=== PATIENT | female | born 1955 | race Caucasian/White ===

== ENCOUNTER → 2018-02-16 12:45 | Outpatient (CLI) | payer BC, SELFPAY ==
[2018-02-16 13:13] LABS: Add Manual Diff / Slide Review NO; Basophils Percent Auto 0.4 % (0-2); Eosinophils Percent Auto 0.5 % (2-4); Hematocrit 39.5 % (36-46); Hemoglobin 12.9 g/dL (12.0-16.0); Lymphocytes Percent Auto 23.5 % (25-40); Mean Corpuscular HGB Conc 32.8 % (30-36); Mean Corpuscular Hemoglobin 30.8 PG (26-34); Monocytes Percent Auto 7.7 % (3-14); Neutrophils Absolute Auto 6100 /uL (3000-5900); Neutrophils Percent Auto 67.9 % (50-75); Platelet Count 295 X10^3/uL (150-400)
[2018-02-16 13:34] LABS: Alanine Aminotransferase 36 IU/L (9-52); Albumin 4.2 g/dL (3.5-5.0); Albumin Globulin Ratio 1.5 (1.0-2.8); Alkaline Phosphatase 92 U/L (38-126); Aspartate Aminotransferase 21 IU/L (14-36); BUN Creatinine Ratio 26.7 (6-22); Bilirubin Total 0.4 mg/dL (0.2-1.3); Blood Urea Nitrogen 16 mg/dL (7-17); Calcium 9.8 mg/dL (8.4-10.2); Carbon Dioxide 29 mmol/L (22-32); Chloride 104 mmol/L (98-107); Estimated Glomerular Filt Rate > 60.0 mL/min (>60); Globulin 2.8 g/dL (1.7-4.1); Glucose 86 mg/dL (80-110); HEMOLYSIS < 15 (0-50); Sodium 141 mmol/L (137-145); Uric Acid 3.1 mg/dL (2.5-6.2)
== END ==
PROVIDERS: PCP Internal Medicine; Visit Provider Physician Assistant
DX: M25.431 Effusion, right wrist (principal)
CPT/HCPCS: 36415; 80053; 84550; 85025

== ENCOUNTER 2018-11-13 14:51 | Emergency (ER) | payer BC, SELFPAY ==
[2018-11-13 15:06] VITALS: BP 131/76; PULSE 74; RESP 18; TEMP 36.4; O2SAT 100; BMI 27.9
[2018-11-13 15:36] LABS: Bacteria Urine Few (2-10); Culture Indicated Urine Specimen Cultured; RBC Urine 0-1/HPF (0-5/HPF); WBC Urine 1-5/HPF (0-5/HPF)
--- NOTE | 2018-11-13 16:28 | ED_ITS ---
HPI - Female Genitourinary <SHREYAS Haywood-BC - Last Filed: 11/13/18 16:35> General Chief complaint: Urogenital-Female Stated complaint: Thinks bladder infection Time Seen by Provider: 11/13/18 16:09 Source: patient Mode of arrival: ambulatory Limitations: no limitations History of Present Illness HPI Narrative: The patient is a 63-year-old female former smoker who presents with a chief complaint of UTI symptoms. She states she woke this morning dysuria urgency or frequency. She denies any fevers vomiting diarrhea or flank pain. She has a history of urinary tract infections and states that this feels normal. She denies any abdominal pain other than bladder pressure. She denies any vaginal discharge. She has not had a UTI for over a year. Related Data Home Medications Medication Instructions Recorded Confirmed calcium acetate PO 02/16/18 02/16/18 omega-3 fatty acids-fish oil PO 02/16/18 02/16/18 Previous Rx's Medication Instructions Recorded ibuprofen 800 mg tablet 800 mg PO TID PRN #90 tab 02/16/18 sulfamethoxazole-trimethoprim 1 tab PO BID #14 tab 11/13/18 [Bactrim DS] Allergies Allergy/AdvReac Type Severity Reaction Status Date / Time From DIFLUCAN AdvReac Intermediate heart Uncoded 11/13/18 15:09 palpitations From CIPRO AdvReac Mild tendinititi Uncoded 11/13/18 15:09 s Review of Systems <SHREYAS Haywood-BC - Last Filed: 11/13/18 16:35> Review of Systems GENERAL: Denies chills, fatigue, malaise, fever, sweats. HEENT: Denies sinus pain, ear pain, sore throat, difficulty swallowing, dizziness. RESPIRATORY: Denies dyspnea, cough, wheezing, hemoptysis, sputum. CARDIOVASCULAR: Denies chest pain, palpitations, orthopnea, edema, GASTROINTESTINAL: Denies nausea, vomiting, abdominal pain, diarrhea, co nstipation, melena. : See HPI MUSCULOSKELETAL: denies weakness, joint pain, or bony pain SKIN: Denies rash, skin lesions, or other NEUROLOGIC: Denies weakness, headache, numbness, change in speech, confusion, seizures, incoordination. PSYCHIATRIC: No concerning psychosocial issues. 12 point review of systems is negative except for those stated above PFSH <NILES Haywood - Last Filed: 11/13/18 16:35> Medical History (Updated 11/13/18 @ 16:34 by NILES Haywood) History of recurrent UTIs (Acute) Social History Smoking Status: Former smoker Social History Smoking Status: Former smoker Exam <NILES Haywood - Last Filed: 11/13/18 16:35> Narrative Exam Narrative: GENERAL: This is a well-nourished, well-developed patient, no acute distress HEAD: Atraumatic. Normocephalic. No temporal or scalp tenderness. EYES: Pupils equal round and reactive. Extraocular motions intact. No scleral icterus. No injection or drainage. ENT: Nose without bleeding, purulent drainage or septal hematoma. Throat without erythema, tonsillar hypertrophy or exudate. Uvula midline. Airway patent. NECK: Trachea midline. No JVD or lymphadenopathy. Supple, nontender, no meningeal signs. CARDIOVASCULAR: Regular rate and rhythm without murmurs, gallops, or rubs. RESPIRATORY: Clear to auscultation. Breath sounds equal bilaterally. No wheezes, rales, or rhonchi. GASTROINTESTINAL: Abdomen soft, non-tender, nondistended. No hepato- splenomegaly, or palpable masses. No guarding. EXTREMITIES: No clubbing, cyanosis, or edema. No joint tenderness, effusion, or edema noted. BACK: Nontender without deformity or crepitance. No flank tenderness. NEURO: AOx3. SKIN: No rash or erythema. Initial Vital Signs Initial Vital Signs: Vital Signs Temperature 97.5 F L 11/13/18 15:06 Pulse Rate 74 11/13/18 15:06 Respiratory Rate 18 11/13/18 15:06 Blood Pressure 131/76 11/13/18 15:06 Pulse Oximetry 100 11/13/18 15:06 <Katrina Jennings DO - Last Filed: 11/14/18 07:38> Initial Vital Signs Initial Vital Signs: Vital Signs Temperature 97.5 F L 11/13/18 15:06 Pulse Rate 74 11/13/18 15:06 Respiratory Rate 18 11/13/18 15:06 Blood Pressure 131/76 11/13/18 15:06 Pulse Oximetry 100 11/13/18 15:06 Course <NILES Haywood - Last Filed: 11/13/18 16:35> Orders Ordered: ED Orders 11/13/18 15:05 Urine Culture Stat Urine Microscopic Stat Vital Signs - 8 hr 11/13/18 15:06 Temperature 97.5 F L Pulse Rate 74 Respiratory Rate 18 Blood Pressure 131/76 Pulse Oximetry 100 <Katrina Jennings DO - Last Filed: 11/14/18 07:38> Orders Ordered: ED Orders 11/13/18 15:05 Urine Culture Stat Urine Microscopic Stat Vital Signs - 8 hr 11/13/18 15:06 Temperature 97.5 F L Pulse Rate 74 Respiratory Rate 18 Blood Pressure 131/76 Pulse Oximetry 100 MDM - Female Genitourinary <NILES Haywood - Last Filed: 11/13/18 16:35> Lab Data Lab Results 11/13/18 Range/Units 15:05 Urine RBC 0-1/hpf (0-5/HPF) Urine WBC 1-5/hpf (0-5/HPF) Urine Bacteria Few (2-10) H (None) Ur Culture Indicated? Specimen cultured Urine Dip Bedside Urine Glucose Negative Bedside Urine Bilirubin - Negative Bedside Urine Ketone - Negative Urine Specific [place] 1.010 Bedside Urine Occult Blood ++ Bedside Urine pH 7.0 Bedside Urine Protein - Negative Bedside Urine Urobilinogen - Negative Bedside Urine Nitrite - Negative Bedside Urine Leukocytes + 70 Esterase MDM Narrative Medical decision making narrative: The patient is a 63-year-old female with hist ory of hypertension who presents with a chief complaint of urinary symptoms. Her urinalysis indicates a UTI. Thus I will initiate treatment for UTI with Bactrim. Her urine cultures pending at this point time. She has no systemic symptoms, no flank pain or fever, ruling out pyelonephritis. I discussed at length return precautions including fever, inability keep down fluids etc. Encouraged PCP follow-up. Patient will do that when she gets back to [place]. No questions or concerns upon discharge. <Katrian Jennings DO - Last Filed: 11/14/18 07:38> Lab Data Lab Results 11/13/18 Range/Units 15:05 Urine RBC 0-1/hpf (0-5/HPF) Urine WBC 1-5/hpf (0-5/HPF) Urine Bacteria Few (2-10) H (None) Ur Culture Indicated? Specimen cultured Urine Dip Bedside Urine Glucose Negative Bedside Urine Bilirubin - Negative Bedside Urine Ketone - Negative Urine Specific [place] 1.010 Bedside Urine Occult Blood ++ Bedside Urine pH 7.0 Bedside Urine Protein - Negative Bedside Urine Urobilinogen - Negative Bedside Urine Nitrite - Negative Bedside Urine Leukocytes + 70 Esterase Discharge Plan Departure Patient Disposition: Home Clinical Impression: Urinary tract infection Qualifiers: Urinary tract infection type: site unspecified Hematuria presence: with hematuria Qualified Code(s): N39.0 - Urinary tract infection, site not specified Discharge Date/Time: 11/13/18 16:36 Interventions: ED Discharge Assessment Last Done: 11/13/18 16:36 Instructions: DI for Urinary Tract Infection (UTI) Activity Restrictions/Additional Instructions: Your urine was concerning for infection. I have given her prescription for an antibiotic. Please follow up with primary care provider when you get home Please monitor for fever, flank pain inability keep down fluids or signs of worsening. Please be evaluated if any of these happen. A urine culture is pending at this point time. Results will be back in 48-72 hours. You will get a phone call if the antibiotic needs to be changed Prescriptions: New sulfamethoxazole-trimethoprim [Bactrim DS] 800-160 mg tablet 1 tab PO BID Qty: 14 RF: 0 No Action omega-3 fatty acids-fish oil PO RF: 0 calcium acetate PO RF: 0 ibuprofen 800 mg tablet 800 mg PO TID PRN (Reason: pain) Qty: 90 RF: 0 <Katrina Jennings DO - Last Filed: 11/14/18 07:38> Cosign ED Attending Cosadrianature Attestation: I was immediately available in the department for consultation. This documentation has been reviewed and I agree with assessment and plan. Supervised by Katrina Jennings DO
== END 2018-11-13 16:36 | disposition home or self-care (01) ==
PROVIDERS: Emergency Medicine; Emergency Provider Nurse Practitioner Family
DX: N39.0 Urinary tract infection, site not specified (principal)
CPT/HCPCS: 81003; 81015; 87077; 87086; 87186; 99282; 99283

== ENCOUNTER 2018-11-16 16:57 | Emergency (ER) | payer BC, SELFPAY ==
[2018-11-16 17:00] VITALS: BP 131/83; PULSE 74; RESP 20; TEMP 36.9; O2SAT 97; BMI 27.9
[2018-11-16 17:13] LABS: Bacteria Urine None Seen; RBC Urine None Seen (0-5/HPF)
[2018-11-16 17:18] LABS: Appearance Urine UA CLEAR; Bilirubin Urine UA NEGATIVE (NEGATIVE); Color Urine UA YELLOW; Glucose Urine UA NEGATIVE (Negative); Ketones Urine UA NEGATIVE (NEGATIVE); Leukocyte Esterase Urine UA NEGATIVE (NEGATIVE); Nitrite Urine UA NEGATIVE (Negative); Occult Blood Urine UA NEGATIVE (Negative); Protein Urine UA NEGATIVE (Negative); Specific Gravity Urine UA <=1.005 (1.000-1.035); Urobilinogen Urine UA 0.2 E.U./dL (0.2); pH Urine UA 6.5 (4.5-8.0)
[2018-11-16 17:44] LABS: Culture Indicated Urine Cult Not Indicated; Squamous Epithelial Cell Urine 0-1 /HPF (0-5/HPF); WBC Urine 0-1/HPF (0-5/HPF)
--- NOTE | 2018-11-16 19:06 | ED_ITS ---
HPI - Female Genitourinary General Chief complaint: Urogenital-Female Stated complaint: seen 11/13 for UTI, silling having symptoms Time Seen by Provider: 11/16/18 19:03 Source: patient Mode of arrival: ambulatory Limitations: no limitations History of Present Illness HPI Narrative: 63-year-old female here for evaluation of dysuria. She was seen here in the emergency department several days ago and was diagnosed with the urinary tract infection. She was sent home with a prescription for Bactrim. She is currently taking this medication. She states that symptoms seem to improve but then returned today. She was concerned that potentially the antibiotics for incorrect. She denies any back pain no fevers still tolerating oral intake. Still tolerating the antibiotics. No vaginal bleeding. No diarrhea. No vomiting. Related Data Home Medications Medication Instructions Recorded Confirmed calcium acetate PO 02/16/18 02/16/18 omega-3 fatty acids-fish oil PO 02/16/18 02/16/18 Previous Rx's Medication Instructions Recorded ibuprofen 800 mg tablet 800 mg PO TID PRN #90 tab 02/16/18 sulfamethoxazole-trimethoprim 1 tab PO BID #14 tab 11/13/18 [Bactrim DS] Allergies Allergy/AdvReac Type Severity Reaction Status Date / Time From DIFLUCAN AdvReac Intermediate heart Uncoded 11/13/18 15:09 palpitations From CIPRO AdvReac Mild tendinititi Uncoded 11/13/18 15:09 s Review of Systems Constitutional Denies fever(s) and Denies headache(s) ENT Ears, Nose, Mouth, and Throat: Denies headache(s) Cardiovascular Denies chest pain and Denies dyspnea Respiratory Denies dyspnea Gastrointestinal Gastrointestinal: Reports abdominal pain (Lower abdomen), Denies change in stool character, Denies diarrhea, Denies nausea and Denies vomiting Genitourinary Reports urinary frequency, Reports dysuria and Denies pelvic pain Musculoskeletal Denies back pain, Denies myalgias and Denies arthralgias Integumentary/Breasts Denies rash Neurologic Denies headache(s) Hematologic/Lymphatic Denies easy bleeding and Denies easy bruising [facility] Medical History History of recurrent UTIs (Acute) Social History Smoking Status: Former smoker Social History Smoking Status: Former smoker Exam Initial Vital Signs Initial Vital Signs: Vital Signs Temperature 98.5 F 11/16/18 17:00 Pulse Rate 74 11/16/18 17:00 Respiratory Rate 20 11/16/18 17:00 Blood Pressure 131/83 11/16/18 17:00 Pulse Oximetry 97 11/16/18 17:00 Const General: cooperative, well developed, well groomed and No acute distress Orientation: alert and awake HENMT Head: normal to inspection and normocephalic Resp Effort & Inspection: normal respiratory effort Auscultation: clear to auscultation bilaterally Cardio Rate: regular rate Rhythm: regular rhythm Back/Spine/Pelvis Back: No CVA tenderness Skin Lesions: no lesions Rashes: no rashes Neuro General: alert, awake and oriented x3 Cognition: normal cognition Speech: speech normal Extrem General: normal to inspection and capillary refill normal Psych Appearance: grossly normal and well kempt Course Orders Ordered: ED Orders 11/16/18 17:10 Urinalysis and Microscopic Stat Vital Signs - 8 hr 11/16/18 19:31 Pulse Rate 80 Respiratory Rate 16 Blood Pressure [Left Arm] 122/78 Pulse Oximetry 98 MDM - Female Genitourinary Lab Data Attestation: I reviewed the patient's lab results. Lab Results 11/16/18 11/16/18 Range/Units 17:10 17:10 Urine Color Yellow Urine Appearance Clear Urine pH 6.5 (4.5-8.0) Ur Specific [place] <=1.005 (1.000-1.035) Urine Protein Negative (Negative) Urine Glucose (UA) Negative (Negative) g/dL Urine Ketones Negative (NEGATIVE) Urine Occult Blood Negative (Negative) Urine Nitrate Negative (Negative) Urine Bilirubin Negative (NEGATIVE) Urine Urobilinogen 0.2 (0.2) E.U./dL Ur Leukocyte Esterase Negative (NEGATIVE) Urine RBC None seen None seen (0-5/HPF) Urine WBC 0-1/hpf None seen (0-5/HPF) Ur Squamous Epith Cells 0-1 /hpf (0-5/HPF) Urine Bacteria None seen None seen (None) Ur Culture Indicated? Cult not indicated Culture not indicate MDM Narrative Medical decision making narrative: Patient has been on antibiotics the past couple days. Review of the urine culture shows E coli was 70-80,000 colony- forming units. That was pansensitive. Her urinalysis today is unremarkable ho wever she has been on antibiotics since then. She has no signs of pyelonephritis. She has a fairly benign abdominal exam. Low suspicion for appendicitis. Will hold on further workup for now. Informed patient that we should continue the antibiotics as directed given the culture results. We did discuss the use of peridium for her dysuria. Discussed the use of Tylenol for any body aches. She was given return precautions and follow-up instructions. She expressed understanding and agreement with plan. Discharge Plan Departure Patient Disposition: Home Clinical Impression: Urinary tract infection Qualifiers: Urinary tract infection type: acute cystitis Hematuria presence: without hematuria Qualified Code(s): N30.00 - Acute cystitis without hematuria Abdominal pain Qualifiers: Abdominal location: right lower quadrant Qualified Code(s): R10.31 - Right lower quadrant pain Discharge Date/Time: 11/16/18 19:32 Interventions: ED Discharge Assessment Last Done: 11/16/18 19:31 Instructions: DI for Urinary Tract Infection (UTI) Activity Restrictions/Additional Instructions: Continue the antibiotics as directed. Start the pyridium like we discussed. Return to the ER for any new or worsening symptoms. Prescriptions: No Action omega-3 fatty acids-fish oil PO RF: 0 calcium acetate PO RF: 0 ibuprofen 800 mg tablet 800 mg PO TID PRN (Reason: pain) Qty: 90 RF: 0 sulfamethoxazole-trimethoprim [Bactrim DS] 800-160 mg tablet 1 tab PO BID Qty: 14 RF: 0
[2018-11-16 19:25] LABS: Bacteria Urine None Seen; RBC Urine None Seen (0-5/HPF); WBC Urine None Seen (0-5/HPF)
[2018-11-16 19:31] VITALS: BP 122/78; PULSE 80; RESP 16; O2SAT 98
== END 2018-11-16 19:32 | disposition home or self-care (01) ==
PROVIDERS: Emergency Medicine; Emergency Provider Emergency Medicine
DX: N30.00 Acute cystitis without hematuria (principal); R10.31 Right lower quadrant pain
CPT/HCPCS: 81001; 81015; 87086; 99282

== ENCOUNTER 2021-02-25 19:51 | Emergency (ER) | payer BC, SELFPAY ==
[2021-02-25 20:05] VITALS: BP 134/83; PULSE 85; RESP 16; TEMP 36.6; O2SAT 99; BMI 28.8
[2021-02-25 20:41] LABS: Amorphous Sediment Urine 3+; Bacteria Urine Few (2-10); RBC Urine None Seen (0-5/HPF); WBC Urine 5-10/HPF (0-5/HPF)
[2021-02-25 20:42] LABS: Culture Indicated Urine Specimen Cultured
--- NOTE | 2021-02-25 21:12 | ED_ITS ---
HPI - Female Genitourinary General Chief complaint: Urogenital-Female Stated complaint: Think have UTI,burning,fequence Time Seen by Provider: 02/25/21 20:41 History of Present Illness HPI Narrative: 65-year-old woman with no significant medical [place] presents with less than 12 hours of increasing dysuria, pressure in the bladder area and some minor will right-sided bladder pain. Last bladder infection was about a year ago similar start and resolved nicely with Bactrim. She describes no fevers, cough, chills. No vomiting diarrhea. Is able to eat and drink without complication. No flank pain abdominal pain constipation or diarrhea. No headaches. She has no vaginal discharge and describes no new sexual partners. Related Data Home Medications Medication Instructions Recorded Confirmed calcium acetate PO 02/16/18 02/16/18 omega-3 fatty acids-fish oil [Fish PO 02/16/18 02/16/18 Oil] Previous Rx's Medication Instructions Recorded ibuprofen 800 mg tablet 800 mg PO TID PRN #90 tab 02/16/18 sulfamethoxazole 800 1 tab PO BID #14 tab 11/13/18 mg-trimethoprim 160 mg tablet (Bactrim DS) sulfamethoxazole 800 1 tab PO BID #6 tab 02/25/21 mg-trimethoprim 160 mg tablet (Bactrim DS) Allergies Allergy/AdvReac Type Severity Reaction Status Date / Time From DIFLUCAN AdvReac Intermediate heart Uncoded 11/13/18 15:09 palpitations From CIPRO AdvReac Mild tendinititi Uncoded 11/13/18 15:09 s Review of Systems Review of Systems Narrative: Remainder of complete review of systems is otherwise unremarkable except for that included in the HPI. Patient History Medical History History of recurrent UTIs alcohol intake frequency: a few times a month Substance Use Type: does not use Exam Narrative Exam Narrative: General: Alert appropriate in no acute distress Respiratory: Able to speak in full sentences, no obvious respiratory distress Abdomen: Minor suprapubic tenderness and right lower pelvic tenderness without rebound or guarding. Normal bowel tones. No flank pain. Skin: No obvious rashes, warm and dry Neurologic: Grossly intact no obvious asymmetries or abnormalities Psych: appropriate insight and affect, cooperative Initial Vital Signs Initial Vital Signs: Vital Signs Temperature 97.8 F 02/25/21 20:05 Pulse Rate 85 02/25/21 20:05 Respiratory Rate 16 02/25/21 20:05 Blood Pressure 134/83 02/25/21 20:05 Pulse Oximetry 99 02/25/21 20:05 Course Orders Ordered: ED Orders 02/25/21 20:03 Urine Culture Stat Urine Microscopic Stat Discontinued Medications Trimethoprim/Sulfamethoxazole (Trimeth/Sulfa 160/800 (Ds) Tablet) 1 tab PO NOW ONE Stop: 02/25/21 21:11 Vital Signs Vital signs: Vital Signs - 8 hr 02/25/21 20:05 Temperature 97.8 F Pulse Rate 85 Respiratory Rate 16 Blood Pressure 134/83 Pulse Oximetry 99 MDM - Female Genitourinary Lab Data Labs: Lab Results 02/25/21 Range/Units 20:03 Urine RBC None seen (0-5/HPF) Urine WBC 5-10/hpf H (0-5/HPF) Amorphous Sediment 3+ Urine Bacteria Few (2-10) H (None) Ur Culture Indicated? Specimen cultured Urine Dip Bedside Urine Glucose Negative Bedside Urine Bilirubin - Negative Bedside Urine Ketone - Negative Urine Specific [place] 1.010 Bedside Urine Occult Blood - Negative Bedside Urine pH 7.0 Bedside Urine Protein - Negative Bedside Urine Urobilinogen - Negative Bedside Urine Nitrite - Negative Bedside Urine Leukocytes + 70 Esterase MDM Narrative Medical decision making narrative: 65-year-old woman with increasing UTI symptoms over the last 12 hours. Microscopic urine exam does show white blood cells and bacteria. Will treat her with 3 days of Bactrim is symptoms have been present for less than 24 hours. Signs and symptoms of worsening infection or additional complications were reviewed with her and she will return if symptoms worsen. Safe for home discharge Discharge Plan Departure Patient Disposition: Home Clinical Impression: Urinary tract infection Qualifiers: Urinary tract infection type: acute cystitis Hematuria presence: without hematuria Qualified Code(s): N30.00 - Acute cystitis without hematuria Instructions: DI for Urinary Tract Infection (UTI) Activity Restrictions/Additional Instructions: Thank you for coming in today Your symptoms, exam and the urinalysis all suggest that you are in fact developing a bladder infection As you have had luck with Bactrim in the past, we will use this again. Because the symptoms have been present for less than 12 hours, going to suggest only 3 days of treatment. A prescription was electronically transmitted to [facility] here in [place]. If you have worsening findings, developed fevers kidney pain or develop new symptoms, please return to the ER Prescriptions: New sulfamethoxazole-trimethoprim [Bactrim DS] 800-160 mg tablet 1 tab PO BID Qty: 6 RF: 0 No Action omega-3 fatty acids-fish oil PO RF: 0 calcium acetate PO RF: 0 ibuprofen 800 mg tablet 800 mg PO TID PRN (Reason: pain) Qty: 90 RF: 0 sulfamethoxazole-trimethoprim [Bactrim DS] 800-160 mg tablet 1 tab PO BID Qty: 14 RF: 0
[2021-02-25] MEDS: TRIMETH/SULFA 160/800 (DS) TABLET 1 TAB PO (21:27)
[2021-02-25 21:33] VITALS: BP 139/67; PULSE 81; RESP 15; O2SAT 97
== END 2021-02-25 21:35 | disposition home or self-care (01) ==
PROVIDERS: Emergency Provider Emergency Medicine
DX: N30.00 Acute cystitis without hematuria (principal)
CPT/HCPCS: 81003; 81015; 87086; 99283

== ENCOUNTER → 2021-12-29 16:20 | Outpatient (CLI) | payer BC, SELFPAY | PROVIDERS: Visit Provider Student in an Organized Health Care Education/Training Program | DX: R30.0 Dysuria (principal) | CPT/HCPCS: 87086 ==

== ENCOUNTER → 2024-10-20 18:08 | Outpatient (CLI) | payer BC, SELFPAY ==
[2024-10-20 19:53] LABS: Influenza A - CEPHEID Flu A NEGATIVE (NEGATIVE); Influenza B - CEPHEID Flu B NEGATIVE (NEGATIVE); Respiratory Syncytial Virus Negative (Negative)
[2024-10-20 20:00] LABS: COVID-19 CEPHEID 4-PLEX PCR Negative (Negative)
== END ==
PROVIDERS: Visit Provider Nurse Practitioner Family
DX: J02.9 Acute pharyngitis, unspecified (principal); R05.1 Acute cough
CPT/HCPCS: 0241U; 87070

== ENCOUNTER → 2024-10-20 18:34 | Outpatient (CLI) | payer BC, SELFPAY ==
--- NOTE | 2024-10-20 18:37 | DI.RAD.S_ITS ---
PROCEDURE: XR CHEST 2V INDICATIONS: Cough TECHNIQUE: 2 views of the chest were acquired. COMPARISON: None. FINDINGS: Surgical changes and devices: None. Lungs and pleura: Lungs are clear. No pleural effusions or pneumothorax. Mediastinum: Mediastinal contours are normal. Heart size is normal. Bones and chest wall: No suspicious bony abnormalities. Soft tissues appear unremarkable. IMPRESSION: No acute cardiopulmonary pathology. Dictated by: Carlos Hernandez M.D. on 10/22/2024 at 1:44 Approved by: Carlos Hernandez M.D. on 10/22/2024 at 1:44
== END ==
LOC: RAD 18:36
PROVIDERS: Referring Provider Nurse Practitioner Family; Visit Provider Nurse Practitioner Family
DX: J02.9 Acute pharyngitis, unspecified (principal); R05.1 Acute cough
CPT/HCPCS: 0241U; 71046; 87070